=== PATIENT | female | born 1990 | race Caucasian/White ===

== ENCOUNTER 2016-10-23 19:01 | Emergency (ER) | payer OTHER ==
[~2016-10-23] VITALS: Ht 175.3 cm; Wt 95.5 kg
[2016-10-23 19:10] VITALS: BP 123/84; PULSE 106; O2SAT 100
--- NOTE | 2016-10-23 20:17 | ED.REPORT ---
HPI-Extremity Problem Upper Date of Service Oct 23, 2016 ED Provider: Doc,Ed MD History of Present Illness: seen at the walk in clinic 2 weeks ago, given steroids. Stopped after 5 days. pain has returned. Went back and was given another course. Stopped 2 days ago. 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 2 pills for 5 days straight. now in [employer]. right hand dominant. Nursing Notes Stated Complaint: LATERAL EPICONDYLITIS Chief Complaint: Extremity Trauma Nursing Notes Reviewed: Yes Allergies: Coded Allergies: latex (Verified Allergy, Severe, 10/23/16) General Time Seen by MD: 20:16 Chief Complaint Arm injury right Hx Obtained From: Patient Onset Occurred: More than a week ago... (1 month) Past Medical History Past Medical History Denies: Asthma Past Surgical History denies Reports: Tonsillectomy Smoking History Never Smoker Social History Alcohol Use: Denies alcohol use Drug Use: Denies drug use Other Social History: Occupation works in [employer] 10/23/2016 Ambulatory Status Independent Review of Systems Basic Review of Systems Eyes: Vision NL, No discharge Hematologic: No bleeding, No bruising Psychiatric: Normal thought content Physical Exam Initial Vital Signs Vital Signs (First) Date Time Temp Pulse Resp B/P Pulse Ox O2 Delivery O2 Flow Rate FiO2 10/23/16 19:10 36.7 106 123/84 100 Room Air Initial VS: Reviewed, Vital signs normal General/Constitutional: Well-developed, Well-nourished Head / Eyes: Atraumatic, Normocephalic, PERRL ENT: Mucous membranes moist, Conjunctiva normal, No scleral icterus Neck: Supple, Non-tender, Full range of motion Respiratory: Breath sounds normal, Clear to auscultation, No respiratory distress Cardiovascular: Regular rate & rhythm, Heart sounds normal, Intact distal pulses Abdomen / GI: Soft, Non-tender, No guarding, No rebound, No distention Back: No CVA tenderness Lymphatic: No lymphadenopathy Lower Extremities: Vascular intact, Neuro intact, No swelling, No tenderness Skin: Warm, Dry, No cyanosis Neurologic: Alert, Oriented, Nonfocal Psychiatric: Mood/affect normal, Behavior normal, Normal thought content General/Constitutional: Awake, Alert, No acute distress, Well appearing, Well developed, Well hydrated, Well nourished, Cooperative, Not toxic appearing Respiratory / Chest: Atraumatic, Breath sounds NL, Breath sounds = bilat, No respiratory distress Cardiovascular: Heart rate NL, Regular rhythm, Heart sounds NL, No gallop point tender at lateral epicondlyitis, pain with wrist flexion, moderate swelling in elbow, no increased warmth or erthyma. Sensation intact diatally, cap refill less than 2 sec. Re-Eval/Medical Decision Med Decision/Clinical Course Instructed on proper splint placement. exam indicates tennis elbow. No sign of compartment syndrome or joint infection Discharge & Departure Impression: Primary Impression: Tennis elbow syndrome Laterality: right Qualified Code: M77.11 - Lateral epicondylitis, right elbow Additional Impression: Right wrist tendonitis Disposition: Home Patient Instructions: Tennis Elbow (ED), Tennis Elbow Exercises (GEN) Additional Instructions: You have a fairly severe case of tennis elbow and wrist tendonitis. Need to continue with ice as frequently as possible. Start steroids 40 mg daily for 5 days, then 30 mg daily for 5 days, then 20 mg daily for 5 days, then 10 mg daily for 5 days then 5 mg daily for 5 days. After finishing the steroids start ibuprofen 800 mg up to 3 times a day. Take omeprazole daily while taking ibuprofen. You can use hydrocodone at night as needed for severe unrelenting pain. Also need to keep your elbow off the counter at work. Take a towel and let your arm rest on it. NEED to limit elbow motion and wrist motion. Please call Dr. Mooer for follow up. Note for work provided. I am sorry this is happening. Referrals: Luis Moore MD EDSupervising Provider for [facility]: Benny Mckeon DO copies to: Luis Moore MD, Sue ARNP Oct 23, 2016 20:17
[2016-10-23 21:01] VITALS: BP 137/87; PULSE 78; RESP 20; O2SAT 99
== END 2016-10-23 21:02 | disposition home or self-care (01) ==
LOC: SED 19:01
DX: M77.11 Lateral epicondylitis, right elbow (principal); M65.88 Other synovitis and tenosynovitis, other site; X50.3XXA Overexertion from repetitive movements, initial encounter; Y93.J2 Activity, drum and other percussion instrument playing; Y99.8 Other external cause status; Y92.89 Other specified places as the place of occurrence of the external cause; K21.9 Gastro-esophageal reflux disease without esophagitis